=== PATIENT | male | born 1945 | race Caucasian/White ===

== ENCOUNTER 2019-08-03 07:17 | Outpatient (CLI) | payer MEDICARE, OTHER | END 2019-08-03 07:18 | disposition critical access hospital (66) | LOC: EMS 07:17 | PROVIDERS: ATTEND Surgery | DX: R42 Dizziness and giddiness (principal); R53.1 Weakness; R11.0 Nausea | CPT/HCPCS: A0425; A0427 ==

== ENCOUNTER 2019-08-03 07:34 | Emergency (ER) | payer MEDICARE, OTHER ==
[2019-08-03] MEDS ORDERED: DEXAMETHASONE 10 MG/ML VIAL IVP STA (07:44)
[2019-08-03] MEDS ORDERED: MECLIZINE 12.5 MG TABLET PO STA ×3 (07:44→12:32)
[2019-08-03] MEDS ORDERED: SODIUM CHLORIDE 0.9% 1,000 ML IV ONE (07:45)
--- NOTE | 2019-08-03 07:47 | ED Physician Documentation ---
History of Present Illness - Stated complaint Stated Complaint: VERTIGO - Chief complaint Chief Complaint: Neuro - History obtained from History obtained from: Patient - History of Present Illness Timing: Enter time (0600), Today - Additonal information Additional information: Previously well 74-year-old male with a history of hypertension and diabetes has awoken this morning with acute vertigo nausea and vomiting. He states that it was difficult for him to sit up to walk and he has called the ambulance. He was given some Zofran in route with some improvement in his nausea. His symptoms are not resolved. He does not have recent history of sinus congestion ear pain or cough. Review of Systems Constitutional: denies: Fever Eyes: denies: Decreased vision Ears: denies: Ear pain Nose: denies: Rhinorrhea / runny nose, Congestion Throat: denies: Sore throat Cardiac: denies: Chest pain / pressure, Palpitations Respiratory: denies: Dyspnea, Cough GI: reports: Nausea, Vomiting. denies: Abdominal Pain : denies: Dysuria, Frequency Skin: denies: Rash Musculoskeletal: denies: Neck pain, Back pain, Extremity pain Neurologic: reports: Other (dizziness worse with movement or eye opening). denies: Generalized weakness, Focal weakness, Numbness, Headache PD PAST MEDICAL HISTORY - Past Medical History Cardiovascular: Hypertension, High cholesterol Endocrine/Autoimmune: Type 2 diabetes GI: GERD - Past Surgical History Past Surgical History: No - Present Medications Home Medications: Ambulatory Orders Medication Instructions Recorded Confirmed Atenolol 08/03/19 Hydrochlorothiazide 08/03/19 Meclizine [Antivert] 25 mg PO Q6H #30 tablet 08/03/19 Meloxicam 08/03/19 Omeprazole 08/03/19 Potassium Chloride 10 meq PO BID #20 tablet.er 08/03/19 Simvastatin 08/03/19 metFORMIN [Glucophage] 08/03/19 - Allergies Allergies/Adverse Reactions: Allergies Allergy/AdvReac Type Severity Reaction Status Date / Time No Known Drug Allergies Allergy Verified 08/03/19 07:40 - Social History Does the pt smoke?: No Smoking Status: Never smoker Does the pt drink ETOH?: No Does the pt have substance abuse?: No - Immunizations Immunizations are current?: Yes PD ED PE NORMAL - Vitals Vital signs reviewed: Yes (hypertensive mild ) - General General: No acute distress, Well developed/nourished, Other (lying with eyes closed grimmace on face) - HEENT HEENT: Atraumatic, PERRL, EOMI, Pharynx benign, Other (cerumen on the rigth the left is clear. There are 3 beats of nystagmus to the right and 2 to the left. ) - Neck Neck: Supple, no meningeal sign, No bony TTP - Cardiac Cardiac: RRR, No murmur - Respiratory Respiratory: No respiratory distress, Clear bilaterally - Abdomen Abdomen: Soft, Non tender - Back Back: No CVA TTP, No spinal TTP - Derm Derm: Normal color, Warm and dry, No rash - Extremities Extremities: No deformity, No edema - Neuro Neuro: Alert and oriented X 3, adoption coordinator 2-12 intact, No motor deficit, No sensory deficit, Normal speech Eye Opening: Spontaneous Motor: Obeys Commands Verbal: Oriented GCS Score: 15 - Psych Psych: Other (mood is withdrawn and the affect is flat) Results - Vitals Vitals: Vital Signs - 24 hr 08/03/19 08/03/19 08/03/19 07:36 08:48 09:39 Temperature 36.3 C L Heart Rate 70 75 75 Respiratory 20 19 20 Rate Blood Pressure 152/74 H 145/75 H 147/71 H O2 Saturation 92 92 93 08/03/19 08/03/19 08/03/19 10:08 10:41 11:34 Temperature 36.7 C Heart Rate 71 79 79 Respiratory 18 19 17 Rate Blood Pressure 149/74 H 138/84 H 140/78 H O2 Saturation 94 93 97 08/03/19 12:30 Temperature 36.7 C Heart Rate 74 Respiratory 20 Rate Blood Pressure 161/77 H O2 Saturation 96 Oxygen O2 Source Room air - EKG (time done) 0737 Rate: Rate (enter#) (71) Intervals: Wide QRS (borderline) Compare to prior EKG: Old EKG unavailable Computer interpretation: Agree with computer - Labs Labs: Laboratory Tests 08/03/19 08/03/19 08:02 08:02 WBC 8.8 RBC 4.41 L Hgb 12.8 L Hct 38.1 L MCV 86.4 MCH 29.0 MCHC 33.6 RDW 12.9 Plt Count 228 MPV 9.3 Neut # (Auto) 5.5 Lymph # (Auto) 2.6 [place]ison # (Auto) 0.5 Eos # (Auto) 0.1 Baso # (Auto) 0.1 Absolute Nucleated RBC 0.00 Nucleated RBC % 0.0 Sodium 136 Potassium 2.8 L Chloride 96 L Carbon Dioxide 26 Anion Gap 14.0 H BUN 14 Creatinine 0.8 Estimated GFR (MDRD) 95 Glucose 252 H Calcium 8.8 Total Bilirubin 0.8 AST 20 ALT 19 Alkaline Phosphatase 53 Total Protein 7.4 Albumin 4.0 Globulin 3.4 Albumin/Globulin Ratio 1.2 Lipase 34 Procedures - IVC sono (time) 1230 Bedside IVC sono: IVC measures (cm) (1.49), Euvolemia PD MEDICAL DECISION MAKING - ED course Complexity details: reviewed results, re-evaluated patient, considered differential, d/w patient, d/w family ED course: 74-year-old male with acute vertigo has vomiting associated with this and he is found to be dehydrated as well. Here in the emergency department he is treated with IV Decadron p.o. meclizine and IV saline. He is found to have markedly low potassium and is administered intravenous potassium as well as oral potassium. He has some improvement in his general dizziness he is able to stand at the side of the bed but feels quite weak and prefers to lay with his eyes closed. He states that he is improved from his presentation. Departure - Departure Disposition: 01 Home, Self Care Clinical Impression: Dehydration, Hypokalemia Acute labyrinthitis Qualifiers: Laterality: bilateral Qualified Code(s): H83.03 - Labyrinthitis, bilateral Condition: Stable Instructions: ED Labyrinthitis, ED Dehydration, ED Potassium Deficiency Follow-Up: Your, doctor [Other] Prescriptions: Meclizine [Antivert] 25 mg PO Q6H #30 tablet Potassium Chloride 10 meq PO BID #20 tablet.er
[2019-08-03 08:24] LABS: ALBUMIN/GLOBULIN RATIO 1.2 (1.0-2.2); BASOPHILS # (AUTO) 0.1 10^3/uL (0.0-0.1); BASOPHILS % (AUTO) 0.6 %; BILIRUBIN,TOTAL 0.8 mg/dL (0.2-1.0); CALCIUM 8.8 mg/dL (8.5-10.3); CREATININE 0.8 mg/dL (0.6-1.2); EOSINOPHILS # (AUTO) 0.1 10^3/uL (0.0-0.7); EOSINOPHILS % (AUTO) 0.8 %; HGB - HEMOGLOBIN 12.8 g/dL (14.0-18.0); LYMPHOCYTES # (AUTO) 2.6 10^3/uL (1.5-3.5); LYMPHOCYTES % (AUTO) 29.8 %; MEAN CORPUSCULAR HGB CONC 33.6 g/dL (32.0-36.0); MEAN CORPUSCULAR VOLUME 86.4 fL (80.0-94.0); MEAN PLATELET VOLUME 9.3 fL (7.4-11.4); MONOCYTES # (AUTO) 0.5 10^3/uL (0.0-1.0); MONOCYTES % (AUTO) 5.8 %; NEUTROPHILS # (AUTO) 5.5 10^3/uL (1.5-6.6); NEUTROPHILS % (AUTO) 62.5 %; PLT - PLATELET COUNT 228 10^3/uL (130-450); RED BLOOD COUNT 4.41 10^6/uL (4.70-6.10); RED CELL DISTRIBUTION WIDTH 12.9 % (12.0-15.0); TOTAL PROTEIN 7.4 g/dL (6.7-8.2); WHITE BLOOD COUNT 8.8 x10^3/uL (4.8-10.8)
[2019-08-03] MEDS ORDERED: POTASSIUM CHLORIDE 20 MEQ TABLET PO STA (08:34)
[2019-08-03] MEDS: POTASSIUM CHLOR 10 MEQ/100 ML 10 MEQ/100 ML BAG IV SCH ×4 (08:48→12:34)
[2019-08-03 12:34] VITALS: BP 137/72
== END 2019-08-03 12:49 | disposition home or self-care (01) ==
LOC: EDUNIT# → ED 07:34
DX: H83.03 Labyrinthitis, bilateral (principal); E86.0 Dehydration; E87.6 Hypokalemia; I10 Essential (primary) hypertension; E11.9 Type 2 diabetes mellitus without complications; Z79.84 Long term (current) use of oral hypoglycemic drugs
CPT/HCPCS: 36415; 80053; 83690; 85025; 93005; 96361; 96365; 96366; 96375; 99283; 99284; A9270

== ENCOUNTER 2019-08-08 11:01 | Outpatient (CLI) | payer MEDICARE, OTHER | END 2019-08-08 11:02 | disposition critical access hospital (66) | LOC: EMS 11:01 | PROVIDERS: ATTEND Surgery | DX: R53.1 Weakness (principal); R47.89 Other speech disturbances; R42 Dizziness and giddiness | CPT/HCPCS: A0425; A0429 ==

== ENCOUNTER 2019-08-08 11:40 | Inpatient (IN) | payer MEDICARE, OTHER ==
[2019-08-08] MEDS ORDERED: SODIUM CHLORIDE 0.9% 1,000 ML IV ONE ×2 (11:53)
[2019-08-08 12:28] LABS: BASOPHILS % (AUTO) 0.4 %; EOSINOPHILS # (AUTO) 0.1 10^3/uL (0.0-0.7); EOSINOPHILS % (AUTO) 0.7 %; HGB - HEMOGLOBIN 14.9 g/dL (14.0-18.0); LYMPHOCYTES # (AUTO) 2.4 10^3/uL (1.5-3.5); LYMPHOCYTES % (AUTO) 26.7 %; MEAN CORPUSCULAR HEMOGLOBIN 29.7 pg (27.0-31.0); MEAN CORPUSCULAR HGB CONC 34.7 g/dL (32.0-36.0); MEAN CORPUSCULAR VOLUME 85.5 fL (80.0-94.0); MEAN PLATELET VOLUME 9.5 fL (7.4-11.4); MONOCYTES # (AUTO) 0.8 10^3/uL (0.0-1.0); MONOCYTES % (AUTO) 9.2 %; NEUTROPHILS # (AUTO) 5.7 10^3/uL (1.5-6.6); NEUTROPHILS % (AUTO) 62.7 %; PLT - PLATELET COUNT 308 10^3/uL (130-450); RED BLOOD COUNT 5.02 10^6/uL (4.70-6.10); RED CELL DISTRIBUTION WIDTH 12.6 % (12.0-15.0); WHITE BLOOD COUNT 9.1 x10^3/uL (4.8-10.8)
[2019-08-08 12:47] LABS: ALBUMIN 4.1 g/dL (3.2-5.5); ALBUMIN/GLOBULIN RATIO 1.1 (1.0-2.2); BILIRUBIN,TOTAL 0.9 mg/dL (0.2-1.0); CALCIUM 9.4 mg/dL (8.5-10.3); CREATININE 0.9 mg/dL (0.6-1.2); TOTAL PROTEIN 7.7 g/dL (6.7-8.2)
--- NOTE | 2019-08-08 13:08 | ED Physician Documentation ---
History of Present Illness - Stated complaint Stated Complaint: WEAKNESS/ SLURRED SPEACH - Chief complaint Chief Complaint: Neuro - History obtained from History obtained from: Patient, Family - History of Present Illness Timing: How many days ago (5) Pain level max: 6 Pain level now: 5 - Additonal information Additional information: 74-year-old male presents to the emergency department accompanied by his . She states that he was seen here 5 days ago after a fall. She states that since that time he has continued to have altered mental status at home. She states the he took care of himself, walked without any difficulty and spoke without difficulty before the fall. She states that he has a continued right-sided headache. Patient answers questions, but slowly. This all started after a fall and hit the right side of his head. does state that he fell the day after he went home and hit his head again. Review of Systems Ten Systems: 10 systems reviewed and negative Constitutional: denies: Fever, Chills Nose: denies: Rhinorrhea / runny nose, Congestion GI: denies: Vomiting Skin: denies: Rash Musculoskeletal: denies: Neck pain, Back pain Neurologic: denies: Headache PD PAST MEDICAL HISTORY - Past Medical History Cardiovascular: Hypertension, High cholesterol Endocrine/Autoimmune: Type 2 diabetes GI: GERD - Past Surgical History Past Surgical History: No - Present Medications Home Medications: Ambulatory Orders Medication Instructions Recorded Confirmed Atenolol [Tenormin] 50 mg PO DAILY 08/08/19 08/08/19 Metformin HCl 1,000 mg PO BIDWM 08/08/19 08/08/19 Nortriptyline [Pamelor] 30 mg PO QPM 08/08/19 08/08/19 Omeprazole 20 mg PO QDAC 08/08/19 08/08/19 Simvastatin [Zocor] 40 mg PO QPM 08/08/19 08/08/19 Terazosin HCl 10 mg PO QPM 08/08/19 08/08/19 - Allergies Allergies/Adverse Reactions: Allergies Allergy/AdvReac Type Severity Reaction Status Date / Time No Known Drug Allergies Allergy Verified 08/03/19 07:40 - Social History Does the pt smoke?: No Smoking Status: Never smoker Does the pt drink ETOH?: No Does the pt have substance abuse?: No - Immunizations Immunizations are current?: Yes PD ED PE NORMAL - Vitals Vital signs reviewed: Yes - General General: No acute distress, Well developed/nourished, Other (alert, slow to respond) - HEENT HEENT: PERRL, EOMI, Moist mucous membranes, Other (Tender to palpation over the right temporal area) - Neck Neck: Supple, no meningeal sign - Cardiac Cardiac: RRR, Strong equal pulses - Respiratory Respiratory: No respiratory distress, Clear bilaterally - Abdomen Abdomen: Soft, Non tender, Non distended - Back Back: No spinal TTP - Derm Derm: Warm and dry - Extremities Extremities: No tenderness to palpate - Neuro Neuro: Other (alert, follows commands. slow speech but oriented to person and place) Results - Vitals Vitals: Vital Signs - 24 hr 08/08/19 08/08/19 08/08/19 11:50 11:52 16:05 Temperature 36.7 C Heart Rate 61 59 L 55 L Respiratory 18 18 18 Rate Blood Pressure 135/77 H 139/74 H 144/84 H O2 Saturation 97 99 99 Oxygen O2 Source Room air - Labs Labs: Laboratory Tests 08/08/19 08/08/19 12:11 12:11 WBC 9.1 RBC 5.02 Hgb 14.9 Hct 42.9 MCV 85.5 MCH 29.7 MCHC 34.7 RDW 12.6 Plt Count 308 MPV 9.5 Neut # (Auto) 5.7 Lymph # (Auto) 2.4 [place] # (Auto) 0.8 Eos # (Auto) 0.1 Baso # (Auto) 0.0 Absolute Nucleated RBC 0.00 Nucleated RBC % 0.0 Sodium 130 L Potassium 3.7 Chloride 91 L Carbon Dioxide 28 Anion Gap 11.0 BUN 16 Creatinine 0.9 Estimated GFR (MDRD) 83 L Glucose 161 H Calcium 9.4 Total Bilirubin 0.9 AST 27 ALT 25 Alkaline Phosphatase 60 Total Protein 7.7 Albumin 4.1 Globulin 3.6 Albumin/Globulin Ratio 1.1 Lipase 32 - Rads (name of study) CT head without contrast Radiology: Prelim report reviewed, EMP read contemporaneously, See rad report (1. There is a large right cerebellar hemisphere acute infarct occupying greater than 90% of the right cerebellar hemisphere. No evidence of hemorrhagic transformation. There is evidence of mass-effect with effacement of the fourth ventricle. 2. There is a small to moderate medial left cerebellar infarct with no evidence of hemorrhagic transformation. 3. There appears to be a small infarct of the right hemipons. No evidence of hemorrhagic transformation. 4. The lateral ventricles and third ventricle appear prominent out of proportion for the extent of volume loss. It is unclear if this represents normal pressure hydrocephalus, obstructive hydrocephalus, or a combination of the two. 5. No definite intracranial hemorrhage seen. ) CT cervical spine without contrast Radiology: Prelim report reviewed, EMP read contemporaneously, See rad report (1. No acute fracture or traumatic subluxation seen. 2. Multilevel degenerative changes, as detailed above. ) PD MEDICAL DECISION MAKING - ED course Complexity details: reviewed results, re-evaluated patient, considered differential, d/w patient, d/w family, d/w b2b sales consultant ED course: [facility], message left. No call back received. will admit here Patient with a subacute cerebellar stroke, left and right cerebellum. Possible robbin infarct as well. We will admit the patient for further evaluation and care. Discussed the case with Dr. Conway, hospitalist who accepts. This document was made in part using voice recognition software. While efforts are made to proofread this document, sound alike and grammatical errors may occur. Departure - Departure Disposition: 66 [facility] DC/Xfer Clinical Impression: Cerebellar stroke, acute Condition: Stable NIHSS - Time Time: 12:48 - Level of Consciousness Level of consciousness: (0) Alert, Keenly responsive LOC Questions: (0) Answers both Q's correct LOC Commands: (1) Performs one correctly - Gaze Best Gaze: (0) Normal - Visual Visual: (0) No loss - Facial Palsy Facial Palsy: (0) Normal, symmetrical movement - Motor Arms (both separate) Motor Arm (right): (1) Drift Motor Arm (left): (1) Drift - Motor Legs (both separate) Motor Leg (right): (2) Some effort against gravity Motor Leg (left): (1) Drift - Limb Ataxia Limb Ataxia: (2) Present in 2 limbs - Sensory Sensory: (0) Normal - Best Language Best Language: (0) No aphasia - Dysarthria Dysarthria: (0) Normal - Extinction and Inattention (formally neg Extinction and inattention: (0) No abnormality - Total Score/Results Total Score/Result: 8
--- NOTE | 2019-08-08 14:08 | CT Report ---
Reason: Head trauma, abnormal mental status Procedure Date: 08/08/2019 Accession Number: [id number] / [id number] Procedure: CT - HEAD WO CPT Code: Final Report FULL RESULT: EXAM: CT HEAD EXAM DATE: 08/08/2019 01:30 PM. CLINICAL HISTORY: 74-year-old presenting after head trauma with altered mental status including confusion, disorientation, and decreased mentation. Evaluate for intracranial pathology. COMPARISON: None. TECHNIQUE: Multiaxial CT images were obtained from the foramen magnum to the vertex. Reformats: Sagittal and coronal. IV contrast: None. In accordance with CT protocol optimization, one or more of the following dose reduction techniques were utilized for this exam: automated exposure control, adjustment of mA and/or KV based on patient size, or use of iterative reconstructive technique. FINDINGS: Parenchyma: There is a large region of white matter hypoattenuation involving the right cerebellum measuring 48 x 57 mm (series 2, image 7). There is small to moderate white matter hypoattenuation involving the medial left cerebellum measuring 28 x 45 mm (series 2, image 7). There appears to be white matter hypoattenuation involving the right hemipons measuring 13 x 19 mm (series 2, image 7). The supratentorial brain parenchyma demonstrates moderate bilateral areas of white matter hypoattenuation that are age-indeterminate but appear chronic. Extraaxial Spaces: There is effacement of the fissures of the posterior fossa. No subdural or epidural collections identified. Ventricles: There is effacement of the fourth ventricle. Lateral ventricles and third ventricle appear prominent out of proportion for the extent of volume loss. No evidence of interventricular hemorrhage. Sinuses and Orbits: Imaged paranasal sinuses, orbits, and mastoids show no significant abnormality. Bones: No evidence of fracture or calvarial defect. Other: Vascular calcifications of the cavernous ICA segments. IMPRESSION: 1. There is a large right cerebellar hemisphere acute infarct occupying greater than 90% of the right cerebellar hemisphere. No evidence of hemorrhagic transformation. There is evidence of mass-effect with effacement of the fourth ventricle. 2. There is a small to moderate medial left cerebellar infarct with no evidence of hemorrhagic transformation. 3. There appears to be a small infarct of the right hemipons. No evidence of hemorrhagic transformation. 4. The lateral ventricles and third ventricle appear prominent out of proportion for the extent of volume loss. It is unclear if this represents normal pressure hydrocephalus, obstructive hydrocephalus, or a combination of the two. 5. No definite intracranial hemorrhage seen. RADIA The call report notification system was initiated by Dr. Sancho Encinas at 02:07 PM on 08/08/2019. The above call report findings were discussed with Tai Adames by Dr. Sancho Encinas at 02:11 PM on 08/08/2019.
--- NOTE | 2019-08-08 14:15 | CT Report ---
Reason: Neck trauma, midline tenderness Procedure Date: 08/08/2019 Accession Number: [id number] / [id number] Procedure: CT - CERVICAL SPINE WO CPT Code: Final Report FULL RESULT: EXAM: CT CERVICAL SPINE WITHOUT CONTRAST DATE: 08/08/2019 01:30 PM. HISTORY: 74-year-old presenting after neck trauma with neck pain. Evaluate for cervical pathology. COMPARISONS: None. TECHNIQUE: Thin-section axial images were acquired of the cervical spine without contrast. Post-processing: Coronal and sagittal reformats. Other: None. In accordance with CT protocol optimization, one or more of the following dose reduction techniques were utilized for this exam: automated exposure control, adjustment of mA and/or KV based on patient size, or use of iterative reconstructive technique. FINDINGS: Postsurgical: Post surgical changes of prior open reduction internal fixation of the bilateral mandibular angle. K-wires are seen along the posterior aspect of the bilateral mandibular angle. Alignment: Straightening of the normal cervical lordosis. Scoliosis or spondylolisthesis. Bones: No fracture or bone lesion. Fusion of the C5 and C6 vertebral bodies. Interspace Levels/Facets: C1-C2: Arthritic changes seen between the dens and anterior arch of C1. No spinal canal stenosis. No definite neural foraminal narrowing. C2-C3: Mild endplate degenerative change, Schmorl's node formation, and moderate loss of disk height. Small broad-based disk osteophyte complex. Bilateral uncovertebral osteophyte arthritic facet disease. Mild spinal canal stenosis. Mild bilateral neural foraminal narrowing. C3-C4: Mild endplate degenerative change, Schmorl's node formation, and moderate loss of disk height. Small broad-based disk osteophyte complex. Bilateral uncovertebral osteophyte and arthritic facet disease, greater on the left. Mild spinal canal stenosis. Mild right and moderate left neural foraminal narrowing. C4-C5: Moderate endplate degenerative change, Schmorl's node formation, and severe loss of disk height. Small broad-based disk osteophyte complex. Bilateral uncovertebral osteophyte and arthritic facet disease. Mild to moderate spinal canal stenosis. Moderate right and mild left neural foraminal narrowing. C5-C6: Fusion of the endplates. Small broad-based disk osteophyte complex. Bilateral uncovertebral osteophyte and arthritic facet disease. No definite spinal canal stenosis. Mild right neural foraminal narrowing. C6-C7: Moderate endplate degenerative change, Schmorl's node formation, and severe loss of disk height. Small broad-based disk osteophyte complex. Bilateral uncovertebral osteophyte arthritic facet disease. No definite spinal canal stenosis. Minimal bilateral neural foraminal narrowing. C7-T1: Mild to moderate endplate degenerative change and moderate loss of disk height. No definite spinal canal stenosis. No definite neural foraminal narrowing. Musculature: Mild fatty atrophy of the posterior spinal musculature. There are calcifications seen within the area of the nuchal ligament at C4 and C5 as well as calcification distal to the C7 spinous process. These may represent dystrophic calcifications. Other: The visualized pharynx and larynx appear normal. Visualized major salivary glands appear normal. The thyroid appears normal. The lung apices are clear. IMPRESSION: 1. No acute fracture or traumatic subluxation seen. 2. Multilevel degenerative changes, as detailed above. RADIA The above call report findings were discussed with Tai Adames by Dr. Sancho Encinas at 02:13 PM on 08/08/2019.
--- NOTE | 2019-08-08 15:52 | PROVIDER PROGRESS NOTE ---
Hospitalist Cross-cover Note - Cross-Cover Note Cross-Cover Note: asked me to take care of this pt. I reviewed pt's CT of brain with over 90% infarct on right cerebellar and evidence of mass-effect. I went to ER to see pt. pt slowly response to the command. Pt present bilaterally upper extremities weakness, right weaker more than left. pt's reported to me pt had a fall five days ago, after that, pt continue to have fall and weakness. pt's also told me pt can not control his urination, pt has no bowel movement for five days. she help pt to eat, there was no aspiration or dysphagia. There is no call or consultation from neurologist. I called Dr. Gomez, neurologist, at [facility], reported the CT study and pt's clinic presentation. initially let me wait if [facility] has any bed available. then he called me back, he stated unfortunately [facility]'s ICU bed is not available until tomorrow. pt need ICU bed. I reported this situation to Dr. Conway. state he had two pt need to be transferred now, and ask me help to do admission order only. he will ask night provider to do HPI. Pt will be admitted at ICU.
[2019-08-08] MEDS ORDERED: ONDANSETRON 4 MG/2 ML VIAL IVP PRN (16:57)
[2019-08-08] MEDS ORDERED: ACETAMINOPHEN 325 MG TABLET PO PRN (16:57)
[2019-08-08] MEDS ORDERED: SODIUM CHLORIDE FLUSH 0.9% 10 ML SYRINGE IVP PRN (16:57)
[2019-08-08] MEDS ORDERED: SODIUM CHLORIDE 0.9% 1,000 ML IV SCH (17:00)
--- NOTE | 2019-08-08 17:24 | PHARMACY PROGRESS NOTE ---
- Best Possible Medication History Admit Date and Time: 08/08/19 4339 Processed by: Pharmacy Medication History completed: Yes Patient Interview: Pt unable to participate Secondary Source(s): Physician records ID medical records were requested and received via fax As the person ultimately responsible for medication therapy, providers are able to order a medication from an existing home medication list in [facility] via the "Reconcile Routine" prior to Confirmation of that medication by client support coordinator. Such practice is discouraged except when the physician, in their clinical judgment, deems that a medical need exists for a medication without regard to previous use.
[2019-08-08] MEDS ORDERED: IOVERSOL 320 100 ML VIAL IVP ONE ×3 (17:36→18:19)
[2019-08-08 17:46] LABS: INR 1.2 (0.8-1.2); PT - PROTHROMBIN TIME 13.9 secs (9.9-12.6)
[2019-08-08] MEDS ORDERED: ASPIRIN 325 MG TABLET PO SCH (18:00)
--- NOTE | 2019-08-08 18:29 | HISTORY & PHYSICAL EXAMINATION ---
Chief Complaint - Chief Complaint Chief Complaint: Weakness History of Present Illness - Admitted From Admitted From:: Home - History Obtained From Records Reviewed: Yes History obtained from: Patient, ER Physician, EMR Exam Limitations: Patient is dose oriented and speech is slow - History of Present Illness HPI Comment/Other: This is a 74-year-old male with a past medical history significant for hypertension and type 2 diabetes who presents today for confusion and weakness. He was seen in emerge department about 5 days ago after a fall and he had vertigo-like symptoms. He was treated with meclizine and Decadron and discharged home. Since then he has been unable to ambulate on his own. He has been using a walker and has become increasingly confused and having right-sided weakness. He is unable to tell me the year and he believes he is at [facility]. He states he is not weak but he has difficulty moving his extremities. He reports no headache but does complain of blurry vision which is chronic. Reports no chest pain or dyspnea. He reports of some abdominal discomfort on palpation. In the emergency department, he was afebrile, heart rate of 61, blood pressure 135/77. He was not tachypneic and saturating well on room air. His lab findings were unremarkable except for sodium of 130. CT of the head showed a large right cerebellar hemisphere acute infarct occupying greater than 19 of the right cerebellar hemisphere. There is a mass effect with effacement of the fourth ventricle. There is also small to moderate medial left cerebellar infarct. There also appears to be a small infarct in the right july-robbin. Findings were discussed with neurology at [facility] who will have the patient transferred to their intensive care unit but do not have beds available this time. The recommended admission and will discuss transfer once a bed is available. Given these findings, the patient was admitted to the intensive care unit. Of note I did discuss goals of care with the patient and he would like to be a full code at this time. History - Past Medical History Cardiovascular: reports: Hypertension, High cholesterol Endocrine/Autoimmune: reports: Type 2 diabetes GI: reports: GERD - Family & Social History Family History Comment/Other: His family at bedside state that the patient's mother had a stroke and asthma. No other known family history. Living arrangement: At home Living Situation: With spouse/s.o. Social History Notes: He was previously in the [employer] but is now retired. He lives at home alone with his . He no longer smokes but reports smoking a pack a day in his younger years. His family reports he does drink alcohol on an occasional basis. - Substance History Use: Uses substance without health or social issues: Alcohol Meds/Allgy - Home Medications Home Medications: Ambulatory Orders Medication Instructions Recorded Confirmed Atenolol [Tenormin] 50 mg PO DAILY 08/08/19 08/08/19 Metformin HCl 1,000 mg PO BIDWM 08/08/19 08/08/19 Nortriptyline [Pamelor] 30 mg PO QPM 08/08/19 08/08/19 Omeprazole 20 mg PO QDAC 08/08/19 08/08/19 Simvastatin [Zocor] 40 mg PO QPM 08/08/19 08/08/19 Terazosin HCl 10 mg PO QPM 08/08/19 08/08/19 - Allergies Allergies/Adverse Reactions: Allergies Allergy/AdvReac Type Severity Reaction Status Date / Time No Known Drug Allergies Allergy Verified 08/03/19 07:40 Review of Systems - Constitutional Constitutional: denies: Fever, Chills, Weakness - Eyes Eyes: reports: Blurred vision - Cardiovascular Cariovascular: denies: Chest pain, Exertional dyspnea, Decr. exercise tolerance - Respiratory Respiratory: denies: SOB at rest, SOB with exertion - Gastrointestinal Gastrointestinal: reports: Abdominal pain. denies: Constipation, Diarrhea, Nausea, Vomiting - Genitourinary Genitourinary: denies: Dysuria, Frequency - Musculoskeletal Musculoskeletal: denies: Limited range of motion - Integumentary Integumentary: denies: Rash - Neurological Neurological: denies: General weakness, Focal weakness, Headache - All Other Systems All Other Systems: reports: Reviewed and negative, Other (Review of systems is limited as he is not oriented.) Prior Level of Functionality: He was independent with ADLs prior to the onset of his symptoms 5 days ago. Exam - Vital Signs Reviewed Vital Signs: Yes Vital Signs: Vital Signs x48h Temp Pulse Resp BP Pulse Ox 08/08/19 16:05 55 L 18 144/84 H 99 08/08/19 11:52 59 L 18 139/74 H 99 08/08/19 11:50 36.7 C 61 18 135/77 H 97 - Physical Exam General Appearance: positive: No acute distress, Alert Eyes Bilateral: positive: Normal inspection, PERRL ENT: positive: ENT inspection nml Neck: positive: Nml inspection Respiratory: positive: No respiratory distress. negative: Wheezes, Rales, Rhonchi Cardiovascular: positive: Regular rate & rhythm, No murmur. negative: Systolic murmur, Diastolic murmur Abdomen: positive: Nml bowel sounds, Tenderness. negative: Non-tender, No distention, Guarding, Rebound Skin: positive: No rash, Warm, Dry Extremities: positive: No pedal edema Neurologic/Psychiatric: positive: Disoriented to place, Disoriented to time, Facial droop (Left-sided facial droop.), Other (He has 3 out of 5 motor strength in all 4 extremities. He has dysmetria in all 4 extremities as well. Sensation is intact.). negative: Disoriented to person Conclusion/Plan - Problem List (1) Cerebellar stroke, acute Conclusion/Plan: This is evident on the CT of the head. There is a large right cerebellar acute infarct occupying greater than 90% of the right cerebellar hemisphere. There is also small to moderate medial left cerebellar infarct. The also appears to be a small infarct of the right july-robbin. There is evidence of mass-effect with effacement of the fourth ventricle. Is also concern for obstruction of the ventricles and obstructive hydrocephalus. These findings were discussed with [facility] neurology who wanted the patient transferred to their ICU but they do not have beds available at this time. Discussed the case with the on-call neurologist once again at [facility] once the CTA of the head and neck as well as MRI reports came back. 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 The MRI the brain is also concerning for hemorrhagic transformation and a petechial hemorrhage. Neurology recommended holding off on aspirin for the time being. Although they do not have beds available they feel it is warranted to transfer the patient to a higher level of care sooner than later. I then discussed the case with Dr. Rodríguez at [facility]. He reviewed the imaging and agrees that the patient should be transferred to a higher level of care. He has graciously accepted the patient for transfer. I have called the patient's and updated her on his current clinical condition. (2) Hypertension Conclusion/Plan: He is on atenolol at home. He is currently hypertensive with a systolic in the 140's. Continue to monitor his blood pressure for the time being. (3) Hyponatremia Conclusion/Plan: Appears to be hypovolemic hyponatremia as he appears dry on exam. We will hydrate him with IV saline and monitor his BMP. (4) Type 2 diabetes mellitus Conclusion/Plan: He is on metformin at home. We will check an A1c and start him on insulin sliding scale. NPO for now as he may require intervention. Qualifiers: Diabetes mellitus assisted insulin use: without assisted use (5) Hyperlipidemia Conclusion/Plan: He is on simvastatin. He will be switched to Lipitor given the stroke. (6) GERD (gastroesophageal reflux disease) Conclusion/Plan: He is on omeprazole at home. We will continue Protonix IV. - Lab Results Lab results reviewed: Yes Fish Bones: 08/08/19 12:11 08/08/19 12:11 - Diagnostic Imaging Results Diagnostic Imaging Results: positive: Final report reviewed
--- NOTE | 2019-08-08 19:10 | CT Report ---
Reason: stroke Procedure Date: 08/08/2019 Accession Number: [id number] / [id number] Procedure: CT - ANGIO NECK W CPT Code: Final Report FULL RESULT: EXAM: CT ANGIOGRAM HEAD AND NECK. CT SCAN HEAD WITHOUT AND WITH CONTRAST. EXAM DATE: 08/08/2019 06:18 PM. CLINICAL HISTORY: 74-year-old presenting after head trauma with ataxia and confusion, disorientation, decreased mentation with recent noncontrast CT head demonstrating acute cerebellar infarcts. Evaluate for intracranial pathology or vascular pathology. COMPARISON: CERVICAL SPINE W/O 08/08/2019 1:27 PM. HEAD W/O 08/08/2019 1:27 PM. NECK ANGIO 08/08/2019 6:04 PM. TECHNIQUE: Routine axial helical CTA imaging was performed from the aortic arch through the [employer]. Routine axial CT imaging of the head was performed prior to and following contrast administration. Reconstructions: Routine multiplanar 3D MIP reconstructions. IV contrast: Optiray 320 80 mL. NASCET Criteria are used for stenosis measurements. In accordance with CT protocol optimization, one or more of the following dose reduction techniques were utilized for this exam: automated exposure control, adjustment of mA and/or KV based on patient size, or use of iterative reconstructive technique. FINDINGS: CT SCAN HEAD: Parenchyma: Again seen is a large right cerebellar, moderate left cerebellar and possible right july-pontine infarct that appears similar to CT head 08/08/2019 at 1327 hours. There is associated mass effect with effacement of the fourth ventricle. Extraaxial Spaces: There is effacement of the fissures of the posterior fossa. No subdural or epidural collections identified. Ventricles: There is effacement of the fourth ventricle. Lateral ventricles and third ventricle appear prominent out of proportion for the extent of volume loss. No evidence of interventricular hemorrhage. Sinuses and Orbits: Imaged paranasal sinuses, orbits, and mastoids show no significant abnormality. Bones: No evidence of fracture or calvarial defect. Other: Vascular calcifications of the cavernous ICA segments. CT ANGIOGRAM HEAD AND NECK: There is atherosclerotic plaque involving the aortic arch with no side effects stenosis. There is normal three-vessel takeoff of the great vessels with arthroscopic plaque at the origins of greater vessels with no significant stenosis. The visualized subclavian arteries appear normal. RIGHT: Common Carotid Artery: Patent without significant stenosis. Carotid Bulb: There is mild atherosclerotic plaque at the carotid bifurcation. Stenosis at the bifurcation by NASCET criteria: No significant stenosis. Internal Carotid Artery: Tortuosity of the cervical ICA with no high-grade stenosis or definite dissection seen. There is atherosclerotic plaque involving the cavernous and supraclinoid ICA segments with no high-grade stenosis seen. No evidence of aneurysm along the intracranial ICA. External Carotid Artery: Unremarkable. Vertebral Artery: There is occlusion of the origin of the right vertebral artery with lack of flow related contrast opacification extending to the very distal V4 segment of the right vertebral artery. There is no definite contrast opacification of the right PICA. No aneurysm. Anterior Cerebral Artery: Patent without significant stenosis, aneurysm, or vascular malformation. Middle Cerebral Artery: Patent without significant stenosis, aneurysm, or vascular malformation. Posterior Cerebral Artery: Patent without significant stenosis, aneurysm, or vascular malformation. Posterior Communicating Artery: Patent. No aneurysm. LEFT: Common Carotid Artery: Patent without significant stenosis. Carotid Bulb: There is minimal atherosclerotic plaque at the carotid bifurcation. Stenosis at the bifurcation by NASCET criteria: No significant stenosis. Internal Carotid Artery: No evidence of dissection. No evidence of aneurysm along the intracranial ICA. External Carotid Artery: Unremarkable. Vertebral Artery: Atherosclerotic plaque at the origin of the right vertebral artery with less than 10% stenosis. The V1 through V3 segments are patent with no high-grade stenosis or dissection seen. Intradural V4 segment appears patent. No evidence of dissection. No aneurysm. Anterior Cerebral Artery: Patent without significant stenosis, aneurysm, or vascular malformation. Middle Cerebral Artery: Patent without significant stenosis, aneurysm, or vascular malformation. Posterior Cerebral Artery: Patent without significant stenosis, aneurysm, or vascular malformation. Posterior Communicating Artery: Patent. No aneurysm. CENTRAL: Anterior Communicating Artery: Patent. No aneurysm. Basilar Artery: Patent without significant stenosis. No aneurysm. DURAL VENOUS SINUSES AND MAJOR CENTRAL VEINS: Patent. OTHER: The visualized pharynx and larynx appear normal. The major salivary glands appear normal. The visualized thyroid appears normal. No cervical lymphadenopathy. No necrotic lymph nodes. Soft tissues of the neck appear normal. Dependent atelectatic changes. No acute fracture or traumatic subluxation. Multilevel degenerative changes. No suspicious osseous lesion seen. POST-CONTRAST HEAD: No abnormal enhancement. IMPRESSION: CT SCAN HEAD: 1. There is a large right cerebellar, moderate left cerebellar, and possible small to moderate right july-pontine acute infarct that appears similar to noncontrast CT head 08/08/2019 at 1327 hours. No evidence of hemorrhagic transformation. There is continued mass effect within the cerebellum with effacement of the fourth ventricle. 2. The lateral ventricles and third ventricle appear prominent out of proportion for the extent of volume loss. It is unclear if this represents normal pressure hydrocephalus, obstructive hydrocephalus, or a combination of the two. 3. No definite intracranial hemorrhage seen. No abnormal postcontrast enhancement. CT ANGIOGRAM NECK: 1. There is occlusion of the origin of right vertebral artery with lack of flow related contrast opacification extending to the very distal V4 segment of the right vertebral artery. There is no definite contrast opacification of the right PICA. 2. The carotid arteries and left vertebral artery appear patent with no definite occlusion, dissection, or high-grade stenosis seen. CT ANGIOGRAM HEAD: 1. As detailed above there is occlusion of much of the intradural V4 segment of the right vertebral artery and lack of visualization of the right PICA. 2. Remaining intracranial vasculature demonstrates no additional large vessel occlusion, high-grade stenosis, or aneurysm. RADIA The call report notification system was initiated by Dr. Sancho Encinas at 07:08 PM on 08/08/2019. The above call report findings were discussed with Dr Nixon by Dr. Sancho Encinas at 07:16 PM on 08/08/2019.
[2019-08-08 19:37] LABS: BILIRUBIN,URINE NEGATIVE (NEGATIVE); GLUCOSE, URINE (UA) NEGATIVE (NEGATIVE); KETONES,URINE (UA) NEGATIVE (NEGATIVE); LEUKOCYTE ESTERASE, URINE NEGATIVE (NEGATIVE); NITRITE,URINE NEGATIVE (NEGATIVE); OCCULT BLOOD,URINE NEGATIVE (NEGATIVE); PROTEIN,URINE NEGATIVE (NEGATIVE); UROBILINOGEN,URINE 1 (NORMAL) E.U./dL (NORMAL)
--- NOTE | 2019-08-08 19:46 | MRI Report ---
Reason: stroke Procedure Date: 08/08/2019 Accession Number: [id number] / [id number] Procedure: MRI - Brain W/O CPT Code: Final Report FULL RESULT: EXAM: MRI BRAIN WITHOUT CONTRAST EXAM DATE: 08/08/2019 07:11 PM. CLINICAL HISTORY: 74-year-old with recent noncontrast CT concerning for posterior fossa acute infarct. Evaluate for intracranial pathology. COMPARISON: CTA head and neck 08/08/2019; noncontrast CT head 08/08/2019. TECHNIQUE: Multiplanar, multisequence T1-weighted and fluid-sensitive MR sequences of the brain were performed. Sequences optimized for routine evaluation. Other: None. IV Contrast: None. FINDINGS: Brain Volume: Normal for age. Parenchyma/Dura: There is a right cerebellar area of restricted diffusion measuring 46 x 56 mm (series 505, image 16) concerning for acute infarct. There is susceptibility artifact concerning for petechial hemorrhagic transformation. There is a moderate left cerebellar area of restricted diffusion measuring 18 x 27 mm (series 505, image 32) concerning for acute infarct. There is evidence of susceptibility artifact compatible with hemorrhagic transformation. There is a small to moderate region of restricted diffusion involving the vermis concerning for acute infarct measuring 15 x 24 mm (series 505, image 32). There is susceptibility artifact compatible with petechial hemorrhagic transformation. There is associated mass effect producing effacement of the fourth ventricle. There is additional mild to moderate bilateral areas of T2/FLAIR signal hyperdensity seen predominantly involving the periventricular white matter. Ventricles/Cisterns: Lateral ventricles and third ventricle are dilated out of proportion for the extent of volume loss. Overall ventricular size and configuration appears similar to prior study. No evidence of interventricular hemorrhage. No abnormal extra-axial fluid collection or hemorrhage. Orbits: Symmetric and unremarkable. Sella Turcica: The pituitary gland, cavernous sinuses, suprasellar cistern and optic chiasm are unremarkable. IAC: Symmetric and unremarkable. Vasculature: Alteration of normal flow related signal involving the right vertebral artery compatible with occlusion seen on CTA 08/08/2019. Sinuses: No acute appearing sinus disease. Bones: No focal pathologic appearing marrow signal changes. Other: None. IMPRESSION: Motion artifact technically limits evaluation. 1. There is a large right cerebellar, moderate left cerebellar, and small to moderate vermian late acute infarcts with evidence of hemorrhagic transformation, likely petechial. There is associated mass effect producing effacement of the fourth ventricle. 2. Lateral ventricles and third ventricle are dilated out of proportion for the extent of volume loss. Finding is concerning for hydrocephalus and it is unclear if this represents normal pressure hydrocephalus or obstructive hydrocephalus. 3. Additional mild to moderate white matter changes that while nonspecific, may present sequela of chronic small vessel ischemic disease or increased transependymal flow. 4. Alteration of normal flow-related signal involving the right vertebral artery compatible with occlusion seen on CTA 08/08/2019. RADIA The call report notification system was initiated by Dr. Sancho Encinas at 07:45 PM on 08/08/2019. The above call report findings were discussed with Dr Brumfield by Dr. Sancho Encinas at 07:52 PM on 08/08/2019.
[2019-08-08 19:52] LABS: CLARITY,URINE CLEAR (CLEAR)
[2019-08-08] MEDS ORDERED: ATORVASTATIN 40 MG TABLET PO SCH (21:00)
[2019-08-08] MEDS ORDERED: INSULIN ASPART 300 UNIT/3 ML PEN SUBQ SCH (21:00)
[2019-08-08] MEDS ORDERED: NORTRIPTYLINE 10 MG CAPSULE PO SCH (21:00)
--- NOTE | 2019-08-08 21:32 | DISCHARGE SUMMARY ---
"Discharge Summary Admit Date: 08/08/19 Discharge Date: 08/08/19 Discharging Provider: Angel Brumfield Code Status: Attempt Resuscitation Condition at Discharge: Critical Discharge Facility Name: [facility] - DIAGNOSES Admission Diagnoses: Acute cerebellar stroke with obstructive hydrocephalus Hypertension Hyponatremia Type 2 diabetes mellitus Hyperlipidemia GERD Discharge Diagnoses with Status of Each Condition: Acute cerebellar stroke with obstructive hydrocephalus - This is evident on the CT of the head. There is a large right cerebellar acute infarct occupying greater than 90% of the right cerebellar hemisphere. There is also small to moderate medial left cerebellar infarct. The also appears to be a small infarct of the right july-robbin. There is evidence of mass-effect with effacement of the fourth ventricle. There is also concern for obstruction of the ventricles and obstructive hydrocephalus. These findings were discussed with [facility] neurology who wanted the patient transferred to their ICU but they do not have beds available at this time. Discussed the case with the on-call neurologist once again at [facility] once the CTA of the head and neck as well as MRI reports came back. 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 The MRI the brain is also concerning for hemorrhagic transformation and a petechial hemorr ally. Neurology recommended holding off on aspirin for the time being. Although they do not have beds available they feel it is warranted to transfer the patient to a higher level of care sooner than later. I then discussed the case with Dr. Rodríguez at [facility]. He reviewed the imaging and agrees that the patient should be transferred to a higher level of care. He has graciously accepted the patient for transfer. I have called the patient's and updated her on his current clinical condition. Hypertension - stable. Hyponatremia - stable. Likely hypovolemic hyponatremia. He is on IV saline. Sodium is 130 on admission. Type 2 diabetes mellitus - stable. Hyperlipidemia - stable. GERD - stable. - HPI History of Present Illness: This is a 74-year-old male with a past medical history significant for hypertension and type 2 diabetes who presents today for confusion and weakness. He was seen in emerge department about 5 days ago after a fall and he had vertigo-like symptoms. He was treated with meclizine and Decadron and discharged home. Since then he has been unable to ambulate on his own. He has been using a walker and has become increasingly confused and having right-sided weakness. He is unable to tell me the year and he believes he is at [facility]. He states he is not weak but he has difficulty moving his extremities. He reports no headache but does complain of blurry vision which is chronic. Reports no chest pain or dyspnea. He reports of some abdominal discomfort on palpation. In the emergency department, he was afebrile, heart rate of 61, blood pressure 135/77. He was not tachypneic and saturating well on room air. His lab findings were unremarkable except for sodium of 130. CT of the head showed a large right cerebellar hemisphere acute infarct occupying greater than 19 of the right cerebellar hemisphere. There is a mass effect with effacement of the fourth ventricle. There is also small to moderate medial left cerebellar infarct. There also appears to be a small infarct in the right july-robbin. Findings were discussed with neurology at [facility] who will have the patient transferred to their intensive care unit but do not have beds available this time. The recommended admission and will discuss transfer once a bed is available. Given these findings, the patient was admitted to the intensive care unit. Of note I did discuss goals of care with the patient and he would like to be a full code at this time. - CONSULTS | PROCEDURES Consultations: Neurology at [facility] and Procedures: CTA of the head and neck. CT of the head. Brain MRI. - HOSPITAL COURSE Hospital Course: For acute right cerebellar stroke as there were no beds available at [facility] in their Neuro-ICU. I discussed the MRI and CTA findings with the on-call neurologist once again. They recommended holding off on aspirin given the concern for petechial hemorrhage. There is also concern for obstructive hydrocephalus as well as effacement of the fourth ventricle secondary to mass- effect from the large right cerebellar stroke. They recommended that I contact a higher level of care regarding transfer. I then spoke with neurology at [facility]. Dr. Rodríguez graciously accepted the patient in transfer. I contacted the patient's and informed her of this and to transfer the patient. The patient has become a little bit more confused since arrival to the intensive care unit about 2 hours ago. He is oriented to self. He knows he is at the [facility] but not sure which 1. He is not oriented to the year. He does know who his family members are and their names. Vitals on discharge are: Temperature of 36.9 C. Blood pressure is 131/93. Hea rt rate is 71 and he is in a sinus rhythm. Respiratory rate is 15. Saturating 91% on room air. - ALLERGIES Allergies/Adverse Reactions: Allergies Allergy/AdvReac Type Severity Reaction Status Date / Time No Known Drug Allergies Allergy Verified 08/03/19 07:40 - MEDICATIONS Home Medications: Ambulatory Orders Medication Instructions Recorded Confirmed Atenolol [Tenormin] 50 mg PO DAILY 08/08/19 08/08/19 Metformin HCl 1,000 mg PO BIDWM 08/08/19 08/08/19 Nortriptyline [Pamelor] 30 mg PO QPM 08/08/19 08/08/19 Omeprazole 20 mg PO QDAC 08/08/19 08/08/19 Simvastatin [Zocor] 40 mg PO QPM 08/08/19 08/08/19 Terazosin HCl 10 mg PO QPM 08/08/19 08/08/19 - PHYSICAL EXAM AT DISCHARGE General Appearance: positive: No acute distress, Alert, Lethargic Eyes Bilateral: positive: Normal inspection, PERRL, Conjunctivae nml ENT: positive: ENT inspection nml Neck: positive: Nml inspection Respiratory: positive: No respiratory distress. negative: Wheezes, Rales, Rhonchi Cardiovascular: positive: Regular rate & rhythm, No murmur. negative: Tachycardia, Bradycardia, Systolic murmur, Diastolic murmur Abdomen: positive: Non-tender, No distention, Tenderness (Mild). negative: Guarding, Rebound Skin: positive: No rash, Warm, Dry Extremities: positive: Full ROM, No pedal edema Neurologic/Psychiatric: positive: Disoriented to place, Disoriented to time, Facial droop (There is a left facial droop.), Slurred/abnml speech (His speech is not slurred but it is slowed.), Other (He has 3 out of 5 motor strength in his bilateral upper and lower extremities. There is significant dysmetria noted as up has abnormal [id number] test. Difficult to perform [id number] as the patient is unable to bring his heel up to his knee. Sensation is intact.). negative: Disoriented to person - LABS Result Diagrams: 08/08/19 12:11 08/08/19 12:11 - DIAGNOSTIC IMAGING Diagnostic Imaging Results: Final report reviewed - TIME SPENT Time Spent in Discharge (Minutes): 55"
[2019-08-08 22:29] VITALS: BP 140/98
[2019-08-09] MEDS ORDERED: SODIUM CHLORIDE FLUSH 0.9% 10 ML SYRINGE IVP SCH (01:00)
[2019-08-09] MEDS ORDERED: PANTOPRAZOLE 40 MG VIAL IVP SCH (07:00)
[2019-08-09] MEDS ORDERED: ENOXAPARIN 40 MG/0.4 ML SYRINGE SUBQ SCH (09:00)
== END 2019-08-08 22:50 | disposition short-term general hospital (02) | DRG 64 ==
LOC: EDBD → EDUNIT# → ED 11:40 → ICU 16:57 → UNDOADMIN 16:57 → MS2 16:57
PROVIDERS: ADMIT Nurse Practitioner Gerontology; ATTEND Nurse Practitioner Gerontology
DX: I63.9 Cerebral infarction, unspecified (principal); R29.708 NIHSS score 8; I63.211 Cerebral infarction due to unspecified occlusion or stenosis of right vertebral artery; G91.1 Obstructive hydrocephalus; G81.91 Hemiplegia, unspecified affecting right dominant side; E78.00 Pure hypercholesterolemia, unspecified; Z91.81 History of falling; E87.1 Hypo-osmolality and hyponatremia; I69.392 Facial weakness following cerebral infarction; R47.89 Other speech disturbances; R41.89 Other symptoms and signs involving cognitive functions and awareness; I10 Essential (primary) hypertension; E11.9 Type 2 diabetes mellitus without complications; E78.5 Hyperlipidemia, unspecified; H53.8 Other visual disturbances; R32 Unspecified urinary incontinence; K21.9 Gastro-esophageal reflux disease without esophagitis; Z79.84 Long term (current) use of oral hypoglycemic drugs
CPT/HCPCS: 36415; 70450; 70496; 70498; 70551; 72125; 80053; 81003; 83690; 85025; 85610; 87150; 93005; 99285; A9270; Q9967; 81001; 87086

== ENCOUNTER 2019-08-08 22:48 | Outpatient (CLI) | payer MEDICARE, OTHER | END 2019-08-08 22:49 | disposition short-term general hospital (02) | LOC: EMS 22:48 | PROVIDERS: ATTEND Surgery | DX: I63.9 Cerebral infarction, unspecified (principal); G91.1 Obstructive hydrocephalus | CPT/HCPCS: A0425; A0426 ==